=== PATIENT | male | born 1980 | race African-American/Black ===

== ENCOUNTER 2020-12-26 04:57 | Emergency (ER) | payer MEDICAID ==
[~2020-12-26] VITALS: Ht 175.3 cm; Wt 90.9 kg
[2020-12-26] MEDS ORDERED: MORPHINE SULFATE 4 MG/ML CPJ (NOT FOR IM USE) IV STA (06:26)
[2020-12-26 07:42] LABS: MEAN CORPUSCULAR VOLUME 76.2 fL (80.0-94.0); MEAN PLATELET VOLUME 8.6 fl (7.4-10.4); RED BLOOD CELL COUNT 2.74 mill/uL (4.7-6.1); RED CELL DISTRIBUTION WIDTH 30.8 % (11.6-14.6)
[2020-12-26 07:49] LABS: CHLORIDE 108 mEq/L (98-107)
[2020-12-26 07:51] LABS: HEMATOCRIT. 20.9 % (42.0-52.0); HEMOGLOBIN. 6.6 g/dL (14.0-18.0)
[2020-12-26 08:09] LABS: INR 1.6; PROTHROMBIN TIME 16.1 sec (9.6-11.0)
[2020-12-26 08:30] VITALS: BP 112/49
[2020-12-26 11:23] LABS: PLATELET ESTIMATE MARKEDLY DECREASED
[2020-12-26 11:24] LABS: PLATELET 49 x1000/uL (130-400)
== END 2020-12-26 10:38 | disposition home or self-care (01) ==
LOC: EDBD 04:57 → ER 04:57
DX: D64.9 Anemia, unspecified (principal); K80.20 Calculus of gallbladder without cholecystitis without obstruction; R18.8 Other ascites; K74.60 Unspecified cirrhosis of liver; R16.1 Splenomegaly, not elsewhere classified; I86.4 Gastric varices
CPT/HCPCS: 36415; 74176; 80053; 83690; 85025; 85610; 86850; 86900; 86901; 93005; 96374; 99285; J2270

== ENCOUNTER 2022-02-11 11:19 | Inpatient (IN) | payer MEDICAID, OTHER ==
[~2022-02-11] VITALS: Ht 172.7 cm; Wt 103.9 kg
[2022-02-11] VITALS (58 sets, daily range): BP systolic 39–225; BP diastolic 23–84
[~2022-02-11 11:19] MED LIST: ATROPINE SULFATE 1MG/10ML SYR ONE; CALCIUM CHLORIDE 1GM/10ML SYR IV ONE; EPINEPHRINE 0.1MG/ML (1:10,000) 10ML SYR ONE; ETOMIDATE 2MG/ML 10ML VIAL IV ONE; SODIUM BICARBONATE 8.4% 1 MEQ/ML 50ML SYR IV ONE; SUCCINYLCHOLINE CHLORIDE 200MG/10ML IV ONE
[2022-02-11] MEDS ORDERED: SODIUM CHLORIDE 0.9% 1000ML BAG (SEPSIS BOLUS) IV ONE (11:30)
[2022-02-11] MEDS ORDERED: MORPHINE SULFATE 4 MG/ML CPJ (NOT FOR IM USE) IV ONE ×2 (11:30→11:45)
[2022-02-11] MEDS ORDERED: PANTOPRAZOLE 80 MG in SODIUM CHLORIDE 0.9% 100 ML IV SCH ×2 (11:45→12:15)
[2022-02-11 11:57] LABS: CHLORIDE 112 mEq/L (98-107); INR 2.1; PROTHROMBIN TIME 21.1 sec (9.6-11.0)
[2022-02-11] MEDS ORDERED: PANTOPRAZOLE SODIUM 40 MG/VIAL IV ONE (11:58)
[2022-02-11 12:02] LABS: MEAN CORPUSCULAR HEMOGLOBIN 31.7 pg (28.0-32.0); MEAN CORPUSCULAR VOLUME 103.6 fL (80.0-94.0); MEAN PLATELET VOLUME 9.7 fl (7.4-10.4); RED BLOOD CELL COUNT 1.77 mill/uL (4.7-6.1); RED CELL DISTRIBUTION WIDTH 26.7 % (11.6-14.6)
[2022-02-11 12:03] LABS: ETHANOL BLOOD < 10 mg/dL
[2022-02-11] MEDS ORDERED: NOREPINEPHRINE 8MG/250ML PMX 250 ML IV STA (12:04)
[2022-02-11 12:08] LABS: HEMATOCRIT. 18.3 % (42.0-52.0); HEMOGLOBIN. 5.6 g/dL (14.0-18.0); PLATELET 36 x1000/uL (130-400)
[2022-02-11] MEDS ORDERED: OCTREOTIDE 1,000 MCG in SODIUM CHLORIDE 0.9% 100 ML IV ONE ×4 (12:15)
[2022-02-11] MEDS ORDERED: TRANEXAMIC ACID 1,000 MG/10 ML IV ONE (12:15)
[2022-02-11] MEDS ORDERED: NOREPINEPHRINE 8MG/250ML PMX 250 ML IV ONE (12:17)
[2022-02-11 12:22] LABS: PLATELET ESTIMATE MARKEDLY DECREASED
[2022-02-11] MEDS ORDERED: SODIUM BICARBONATE 100 MEQ in DEXTROSE 5% WATER 1,000 ML IV SCH (13:30)
[2022-02-11] MEDS ORDERED: MIDAZOLAM HCL 2 MG/2 ML VIAL IV ONE (13:30)
[2022-02-11] MEDS ORDERED: MIDAZOLAM 100MG/100ML PMX 100 ML IV PRN (13:45)
[2022-02-11 13:51] LABS: BG BASE EXCESS -23.2 mmol/L (-2.0-2.0); BG CARBOXYHEMOGLOBIN 0.3 % (0.5-1.5); BG DEOXYHEMOGLOBIN 5.8 % (0.0-5.0); BG FRACTION INSPIRED OXYGEN 100; BG HCO3 ACT 9.4 mmol/L (22.0-26.0); BG METHEMOGLOBIN 0.2 % (0.0-1.5); BG OXYGEN SATURATION 94.2 % (92.0-98.5); BG OXYHEMOGLOBIN 93.7 % (94.0-97.0); BG PCO2 54.2 mmHg (35.0-45.0); BG PH 6.858 (7.350-7.450); BG PO2 105.9 mmHg (75.0-100.0); BG SAMPLE SITE RIGHT RADIAL; BG TOTAL HEMOGLOBIN 9.2 g/dL (12.0-18.0); BG VENT MODE VENT - AC
[2022-02-11] MEDS ORDERED: OCTREOTIDE 1,000 MCG in SODIUM CHLORIDE 0.9% 100 ML IV SCH ×2 (14:00→14:15)
[2022-02-11] MEDS ORDERED: IPRATROPIUM/ALBUTEROL 0.5-3(2.5)MG/3ML NEB HHN PRN (14:00)
[2022-02-11] MEDS ORDERED: SODIUM BICARBONATE 150 MEQ in DEXTROSE 5% WATER 1,000 ML IV SCH (14:00)
[2022-02-11] MEDS ORDERED: FENTANYL CITRATE/PF 2,500 MCG in SODIUM CHLORIDE 0.9% 200 ML IV PRN ×2 (14:00→14:15)
[2022-02-11] MEDS ORDERED: PHYTONADIONE 10MG/ML AMP SUBCUT SCH (14:00)
[2022-02-11] MEDS ORDERED: CEFEPIME 1,000 MG in DEXTROSE 5% WATER 50 ML IV SCH (14:00)
[2022-02-11] MEDS ORDERED: SODIUM BICARBONATE 8.4% 1 MEQ/ML 50ML SYR IV NR (14:00)
[2022-02-11 14:37] LABS: HEMATOCRIT 23.6 % (42.0-52.0); HEMOGLOBIN 7.3 g/dL (14.0-18.0)
[2022-02-11 14:45] LABS: CHLORIDE 120 mEq/L (98-107)
[2022-02-11] MEDS: METRONIDAZOLE 500 MG PREMIX 100 ML IV SCH ×2 (14:45→22:23)
[2022-02-11] MEDS: PHENYLEPHRINE 100 MG in DEXT 5% WATER 240 ML IV PRN ×2 (14:52→18:34)
[2022-02-11] MEDS: CEFEPIME 2,000 MG in DEXT 5% WATER 100 ML IV SCH (14:53)
[2022-02-11] MEDS: VASOPRESSIN 20 UNIT in SODIUM CHLORIDE 0.9% 99 ML IV PRN ×2 (15:40→22:19)
[2022-02-11] MEDS ORDERED: VANCOMYCIN 1,500 MG in DEXT 5% WATER 250 ML IV SCH (16:00)
[2022-02-11] MEDS ORDERED: DEXTROSE 50% WATER 50ML SYRINGE IV PRN (16:30)
[2022-02-11 16:53] LABS: CLARITY URINE CLOUDY (CLEAR); COLOR URINE DARK YELLOW (YELLOW); KETONES URINE NEGATIVE (NEGATIVE); LEUKOCYTE ESTERASE URINE 3+ (NEGATIVE); NITRITE URINE POSITIVE (NEGATIVE); OCCULT BLOOD URINE 3+ (NEGATIVE); PH URINE 6.5 (4.5-8.0); PROTEIN URINE 2+ (NEGATIVE); SPECIFIC GRAVITY URINE 1.009 (1.005-1.030)
[2022-02-11] MEDS ORDERED: PANTOPRAZOLE SODIUM 40 MG/VIAL IV SCH (17:00)
[2022-02-11] MEDS ORDERED: CALCIUM GLUCONATE 1GM PREMIX 50 ML IV NR (17:00)
[2022-02-11 17:35] LABS: *AMPHETAMINES SCREEN URINE PRESUMTIVE POSITIVE (NEGATIVE); *BARBITURATES SCREEN URINE NEGATIVE (NEGATIVE); *BENZODIAZEPINES SCREEN URINE NEGATIVE (NEGATIVE); *COCAINE SCREEN URINE NEGATIVE (NEGATIVE); CANNABINOID URINE SCREEN PRESUMTIVE POSITIVE (NEGATIVE); METHADONE URINE SCREEN NEGATIVE (NEGATIVE); PHENCYCLIDINE URINE SCREEN NEGATIVE (NEGATIVE)
[2022-02-11 17:36] LABS: OPIATES URINE SCREEN NEGATIVE (NEGATIVE)
[2022-02-11] MEDS: NOREPINEPHRINE 32 MG in DEXT 5% WATER 218 ML IV PRN ×2 (18:30→18:35)
[2022-02-11] MEDS: IPRATROPIUM/ALBUTEROL 0.5-3(2.5)MG/3ML NEB HHN SCH (20:18)
[2022-02-11] MEDS ORDERED: DOPAMINE 800MG/500ML PREMIX 500 ML IV PRN (22:00)
[2022-02-12] VITALS (28 sets, daily range): BP systolic 36–188; BP diastolic 21–44
[2022-02-12] MEDS: NOREPINEPHRINE 32 MG in DEXT 5% WATER 218 ML IV PRN ×2 (00:01→05:13)
[2022-02-12] MEDS ORDERED: SODIUM BICARBONATE 150 MEQ in DEXTROSE 5% WATER 1,000 ML IV SCH (01:00)
[2022-02-12] MEDS: PHENYLEPHRINE 100 MG in DEXT 5% WATER 240 ML IV PRN ×2 (01:28→06:06)
[2022-02-12] MEDS: IPRATROPIUM/ALBUTEROL 0.5-3(2.5)MG/3ML NEB HHN SCH (02:14)
[2022-02-12] MEDS: CEFEPIME 2,000 MG in DEXT 5% WATER 100 ML IV SCH (02:22)
[2022-02-12] MEDS ORDERED: DOPAMINE 800MG PREMIX (DOUBLE) 250 ML IV PRN (03:00)
[2022-02-12] MEDS: EPINEPHRINE 10 MG in SODIUM CHLORIDE 0.9% 240 ML IV PRN ×2 (05:12→06:54)
[2022-02-12] MEDS: METRONIDAZOLE 500 MG PREMIX 100 ML IV SCH (05:18)
[2022-02-12] MEDS: VASOPRESSIN 20 UNIT in SODIUM CHLORIDE 0.9% 99 ML IV PRN (06:06)
[2022-02-12 06:39] LABS: MEAN CORPUSCULAR VOLUME 103.8 fL (80.0-94.0); MEAN PLATELET VOLUME 7.8 fl (7.4-10.4); RED BLOOD CELL COUNT 1.84 mill/uL (4.7-6.1); RED CELL DISTRIBUTION WIDTH 16.2 % (11.6-14.6)
[2022-02-12 06:54] LABS: HEMATOCRIT. 19.1 % (42.0-52.0); HEMOGLOBIN. 5.5 g/dL (14.0-18.0); PLATELET 25 x1000/uL (130-400)
[2022-02-12 07:45] LABS: INR > 10.0; PROTHROMBIN TIME > 100.0 sec (9.6-11.0)
[2022-02-12] MEDS ORDERED: SODIUM BICARBONATE 8.4% 1 MEQ/ML 50ML SYR IV SCH ×2 (08:00→09:00)
[2022-02-12] MEDS ORDERED: EPINEPHRINE 10 MG in SODIUM CHLORIDE 0.9% 240 ML IV PRN (08:00)
[2022-02-12 08:19] LABS: ATYPICAL LYMPHOCYTES 1; NUCLEATED RED BLOOD CELLS 21 /100 WBC; PLATELET ESTIMATE MARKEDLY DECREASED
[2022-02-12] MEDS ORDERED: INSULIN REGULAR (HUMULIN R) 300UNITS/3ML VIAL IV SCH (09:00)
[2022-02-12] MEDS ORDERED: CALCIUM GLUCONATE 1GM PREMIX 50 ML IV SCH (09:00)
[2022-02-12] MEDS ORDERED: CALCIUM CHLORIDE 1,000 MG in DEXT 5% WATER 90 ML IV SCH (09:00)
[2022-02-12] MEDS ORDERED: DEXTROSE 50% WATER 50ML SYRINGE IV SCH (09:00)
[2022-02-12] MEDS ORDERED: SODIUM BICARBONATE 8.4% 1 MEQ/ML 50ML SYR IV ONE (09:32)
[2022-02-12] MEDS ORDERED: EPINEPHRINE 0.1MG/ML (1:10,000) 10ML SYR ONE (09:32)
[2022-02-12] MEDS ORDERED: CALCIUM CHLORIDE 1GM/10ML SYR IV ONE (09:32)
[2022-02-13 09:09] LABS: % CD 3 POS. LYMPHOCYTES 67.9 % (57.5-86.2); % CD 4 POS. LYMPHOCYTES 13.4 % (30.8-58.5); % CD 8 POS. LYMPH 53.5 % (12.0-35.5); ABSOLUTE CD 3 3056 /uL (622-2402); ABSOLUTE CD 4 HELPER 603 /uL (359-1519); ABSOLUTE CD 8 SUPPRESSOR 2408 /uL (109-897); ABSOLUTE EOSINOPHILS 0.1 x10E3/uL (0.0-0.4); ABSOLUTE LYMPHOCYTES 4.5 x10E3/uL (0.7-3.1); ABSOLUTE MONOCYTES 3.8 x10E3/uL (0.1-0.9); ABSOLUTE NEUTROPHILS 2.9 x10E3/uL (1.4-7.0); BASOPHILS 0 % (Not Estab.); CD4/CD8 RATIO 0.25 (0.92-3.72); HEMATOCRIT 23.7 % (37.5-51.0); HEMATOLOGY COMMENT Note: (.); HEMOGLOBIN 7.7 g/dL (13.0-17.7); LYMPHOCYTES 34 % (Not Estab.); MEAN CORPUSCULAR HEMOGLOBIN 29.6 pg (26.6-33.0); MEAN CORPUSCULAR HGB CONC. 32.5 g/dL (31.5-35.7); MEAN CORPUSCULAR VOLUME 91 fL (79-97); MONOCYTES 29 % (Not Estab.); NEUTROPHILS 17 % (Not Estab.); NUCLEATED RBC 30 % (0 - 0); PLATELETS 29 x10E3/uL (150-450); RED CELL DISTRIBUTION WIDTH 13.6 % (11.6-15.4); WBC 13.2 x10E3/uL (3.4-10.8)
== END 2022-02-12 08:25 | DRG 720 ==
LOC: ER 11:30 → CVICU 12:22 → EDBEDREQTM 12:45 → EDBEDREQ 12:45 → EDBEDREQSVC 12:45 → ENRESERV 13:51
PROVIDERS: ADMIT Internal Medicine; ATTEND Internal Medicine
PROC: 06HY33Z Insertion of Infusion Device into Lower Vein, Percutaneous Approach (ICD-10-PCS; principal; 2022-02-11)
PROC: 5A12012 Performance of Cardiac Output, Single, Manual (ICD-10-PCS; 2022-02-11)
PROC: 5A1935Z Respiratory Ventilation, Less than 24 Consecutive Hours (ICD-10-PCS; 2022-02-11)
PROC: B54CZZA Ultrasonography of Left Lower Extremity Veins, Guidance (ICD-10-PCS; 2022-02-11)
PROC: 0BH17EZ Insertion of Endotracheal Airway into Trachea, Via Natural or Artificial Opening (ICD-10-PCS; 2022-02-11)
PROC: 30233N1 Transfusion of Nonautologous Red Blood Cells into Peripheral Vein, Percutaneous Approach (ICD-10-PCS; 2022-02-11)
PROC: 30233K1 Transfusion of Nonautologous Frozen Plasma into Peripheral Vein, Percutaneous Approach (ICD-10-PCS; 2022-02-11)
PROC: 30233R1 Transfusion of Nonautologous Platelets into Peripheral Vein, Percutaneous Approach (ICD-10-PCS; 2022-02-11)
PROC: 5A12012 Performance of Cardiac Output, Single, Manual (ICD-10-PCS; 2022-02-11)
PROC: 5A12012 Performance of Cardiac Output, Single, Manual (ICD-10-PCS; 2022-02-12)
DX: A41.9 Sepsis, unspecified organism (principal); I46.9 Cardiac arrest, cause unspecified; J96.00 Acute respiratory failure, unspecified whether with hypoxia or hypercapnia; K76.7 Hepatorenal syndrome; J69.0 Pneumonitis due to inhalation of food and vomit; N17.0 Acute kidney failure with tubular necrosis; D68.9 Coagulation defect, unspecified; E87.2 Acidosis; K92.0 Hematemesis; E43 Unspecified severe protein-calorie malnutrition; D53.9 Nutritional anemia, unspecified; R57.8 Other shock; D69.6 Thrombocytopenia, unspecified; R65.21 Severe sepsis with septic shock; E16.2 Hypoglycemia, unspecified; E87.5 Hyperkalemia; E72.20 Disorder of urea cycle metabolism, unspecified; E87.8 Other disorders of electrolyte and fluid balance, not elsewhere classified; I10 Essential (primary) hypertension; F41.9 Anxiety disorder, unspecified; F32.A Depression, unspecified; K74.60 Unspecified cirrhosis of liver; K80.20 Calculus of gallbladder without cholecystitis without obstruction; R00.1 Bradycardia, unspecified; N39.0 Urinary tract infection, site not specified; R04.0 Epistaxis; R18.8 Other ascites; Z20.822 Contact with and (suspected) exposure to COVID-19; Z68.34 Body mass index [BMI] 34.0-34.9, adult; F10.10 Alcohol abuse, uncomplicated; F15.90 Other stimulant use, unspecified, uncomplicated; F17.200 Nicotine dependence, unspecified, uncomplicated; Z87.11 Personal history of peptic ulcer disease
CPT/HCPCS: 36415; 36430; 36600; 71045; 80048; 80053; 80076; 80305; 80320; 81003; 82140; 82330; 82375; 82805; 82962; 83605; 83880; 84145; 84484; 85014; 85018; 85025; 85362; 85384; 86359; 86360; 86850; 86900; 86920; 86927; 87070; 87426; 99291; C9113; J0330; J0461; J0610; J0692; J1265; J2250; J2270; J2354; J2370; J3010; J3370; J3430; J3490; J7030; J7050; J7060; J7070; P9016; P9017; G0480; P9035